=== PATIENT | male | born 1965 | race Caucasian/White ===

== ENCOUNTER 2023-06-20 18:05 | Observation (INO) | payer OTHER ==
[~2023-06-20] VITALS: Ht 165.1 cm; Wt 91.0 kg
[2023-06-20 18:29] LABS: BASOPHILS ABSOLUTE AUTO 0.06 K/mm3 (0.00-0.23); BASOPHILS PERCENT AUTO 1 % (0-2); EOSINOPHILS ABSOLUTE AUTO 0.13 K/mm3 (0.00-0.68); EOSINOPHILS PERCENT AUTO 2 % (0-6); Hematocrit 46.5 % (37.0-53.0); Hemoglobin 16.1 g/dL (13.5-17.5); IMMATURE GRAN ABSOLUTE AUTO 0.08 K/mm3 (0.00-0.10); IMMATURE GRAN PERCENT AUTO 1 % (0-1); LYMPHOCYTES ABSOLUTE AUTO 1.06 K/mm3 (0.84-5.20); LYMPHOCYTES PERCENT AUTO 13 % (21-46); MONOCYTES ABSOLUTE AUTO 0.62 K/mm3 (0.16-1.47); MONOCYTES PERCENT AUTO 8 % (4-13); Mean Corpuscular HGB 31.1 pg (26.0-34.0); Mean Corpuscular HGB Conc 34.6 g/dL (31.5-36.5); Mean Corpuscular Volume 90 fL (80-100); Mean Platelet Volume 10.8 fL (9.1-12.4); NEUTROPHILS ABSOLUTE AUTO 6.08 K/mm3 (1.96-9.15); NEUTROPHILS PERCENT AUTO 76 % (41-73); Platelet Count 257 K/mm3 (150-400); RDW Coefficient Variation 12.9 % (11.7-14.2); RDW Standard Deviation 42.3 fL (35.1-46.3); Red Blood Cell Count 5.17 M/mm3 (4.30-5.90); White Blood Cell Count 8.03 K/mm3 (4.00-11.30)
[2023-06-20 19:56] LABS: Albumin, Blood 3.4 g/dL (3.4-5.0); Albumin/Globulin Ratio 0.9 (0.8-1.8); Bilirubin, Total 0.7 mg/dL (0.1-1.0); Bun/Creatinine Ratio 10.9 (12.0-20.0); Calcium, Blood 8.8 mg/dL (8.5-10.1); Creatinine, Blood 0.82 mg/dL (0.60-1.20); Globulin, Blood 3.7 g/dL (2.2-4.0); Potassium, Blood 4.3 mmol/L (3.5-5.5); Total Protein, Blood 7.1 g/dL (6.4-8.2)
[2023-06-20] MEDS ORDERED: Prinivil10 MG PO (21:56)
[2023-06-20 22:07] VITALS: BP 137/69
[2023-06-21] VITALS (18 sets, daily range): BP systolic 119–163; BP diastolic 61–97
[2023-06-21 05:13] LABS: BASOPHILS ABSOLUTE AUTO 0.07 K/mm3 (0.00-0.23); BASOPHILS PERCENT AUTO 1 % (0-2); EOSINOPHILS PERCENT AUTO 3 % (0-6); Hematocrit 42.2 % (37.0-53.0); Hemoglobin 14.4 g/dL (13.5-17.5); IMMATURE GRAN ABSOLUTE AUTO 0.08 K/mm3 (0.00-0.10); IMMATURE GRAN PERCENT AUTO 1 % (0-1); LYMPHOCYTES ABSOLUTE AUTO 1.18 K/mm3 (0.84-5.20); LYMPHOCYTES PERCENT AUTO 17 % (21-46); MONOCYTES ABSOLUTE AUTO 0.78 K/mm3 (0.16-1.47); MONOCYTES PERCENT AUTO 11 % (4-13); Mean Corpuscular HGB Conc 34.1 g/dL (31.5-36.5); Mean Corpuscular Volume 91 fL (80-100); Mean Platelet Volume 9.9 fL (9.1-12.4); NEUTROPHILS ABSOLUTE AUTO 4.78 K/mm3 (1.96-9.15); NEUTROPHILS PERCENT AUTO 68 % (41-73); Platelet Count 203 K/mm3 (150-400); RDW Coefficient Variation 12.8 % (11.7-14.2); Red Blood Cell Count 4.65 M/mm3 (4.30-5.90); White Blood Cell Count 7.09 K/mm3 (4.00-11.30)
--- NOTE | 2023-06-21 05:14 | NUR ---
PT VSS SINCE ARRIVING TO FLOOR. PT HAS DENIED PAIN/N/V. ABD SOFT, TENDER TO PALP IN RUQ, MILDLY DISTENDED FROM BASELINE PER PT. PT NPO AWAITING SURGERY PLANNING. IVF CONT PER ORDERS.
[2023-06-21 05:55] LABS: Albumin, Blood 2.9 g/dL (3.4-5.0); Albumin/Globulin Ratio 0.9 (0.8-1.8); Bilirubin, Total 0.7 mg/dL (0.1-1.0); Bun/Creatinine Ratio 11.4 (12.0-20.0); Creatinine, Blood 0.79 mg/dL (0.60-1.20); Globulin, Blood 3.2 g/dL (2.2-4.0); Magnesium, Blood 2.3 mg/dL (1.6-2.4); Potassium, Blood 3.9 mmol/L (3.5-5.5); Total Protein, Blood 6.1 g/dL (6.4-8.2)
--- NOTE | 2023-06-21 12:31 | NUR ---
VA IV PT ARRIVED TO THE FLOOR WITH AN IV IN PLACE FROM LOC[facility]. THIS IV WAS REMOVED RIGHT AFTER PLACING NEW IV ACCESS PER PATIENT REQUEST.
--- NOTE | 2023-06-21 17:13 | NUR ---
SHIFT SUMMARY PT HERE FOR UPCOMING CHOLECYSTECTOMY, AWAITING AVAILABILITY IN OR. PT HAS BEEN NPO THROUGHOUT SHIFT. HE DENIES SEVERE PAIN BUT DOES HAVE ABDOMINAL PAIN UPON PALPATION. PT INDEPENDENT IN ROOM. VSS. PT IS RESTING COMFORTABLY, BREATHING EVEN AND UNLABORED.
--- NOTE | 2023-06-21 19:11 | NUR ---
PT TO OR VIA [facility] Raymundo/MARISOL CHANG RN
--- NOTE | 2023-06-21 19:20 | NUR ---
Patient up to Ambulate independently. Gait steady. History, Chart, Medications and Allergies reviewed before start of procedure.Lungs clear T/O to Auscultation. Patient confirms NPO status and agrees with scheduled surgery. Pre-Op teaching done. Pt verbalizes understanding. VSS IN PACU PRE-OP. SCDS, LR, CONSENTS ON CHART
--- NOTE | 2023-06-21 19:26 | NUR ---
SHIFT SUMMARY S/P [facility] PENDING OR TODAY, PT IN BED AND WALKED IN THE HALLS WAITING FOR HIS OR TIME, NO C/O PAIN TODAY, PICKED UP FOR SURGERY JUST BEFORE END OF SHIFT.
--- NOTE | 2023-06-21 23:37 | NUR ---
PT ARRIVED BACK FROM PACU. PT ALERT, TX SELF FROM GURNEY TO BED W/SBA. VSS, SATS TRENDING LOW 90'S ON 2LO2 NC. LUNGS CLEAR/DIM. INCISIONS CDI. CONFIRMED SCHEDULED ABX NOT PREV GIVEN, ABX AND FLUIDS STARTED PER EMAR, PT MED FOR PAIN, DENIED N/V, OC SIPS OF WATER. CALL LIGHT IN REACH
[2023-06-22 00:32] VITALS: BP 137/80
[2023-06-22 01:13] VITALS: BP 127/78
[2023-06-22 03:12] VITALS: BP 138/80
--- NOTE | 2023-06-22 06:29 | NUR ---
POD 1 S/P [facility]. PT VSS, 2LO2 NC [address] PT KEEP SATS >90% WHILE SLEEPING. INCISIONS CDI. PT OC SM AMT CL PO, DENIED N/V, REP NO FLATUS YET. PT VOIDING URINE W/O DIFFICULTY. PT UP OOB W/SBA, OC WELL. IVF AND ABX CONT PER ORDERS. PT EDUCATED ON I/S USE WHILE AWAKE.
[2023-06-22 07:44] VITALS: BP 138/76
[2023-06-22] MEDS ORDERED: LEVO750 PO (11:12)
[2023-06-22] MEDS ORDERED: OXYC5 PO (11:14)
== END 2023-06-22 13:39 | disposition home or self-care (01) ==
LOC: ER 18:05 → SURS 18:06 → ER 21:32 → SURS 21:46
PROVIDERS: Emergency Medicine; Nurse Practitioner Acute Care; Surgery; ADMIT Internal Medicine
PROC: 0FT44ZZ Resection of Gallbladder, Percutaneous Endoscopic Approach (ICD-10-PCS; principal; 2023-06-21 18:00)
PROC: 8E0W4CZ Robotic Assisted Procedure of Trunk Region, Percutaneous Endoscopic Approach (ICD-10-PCS; principal; 2023-06-21 18:00)
DX: K80.00 Calculus of gallbladder with acute cholecystitis without obstruction (principal); I10 Essential (primary) hypertension; E78.5 Hyperlipidemia, unspecified; K82.A1 Gangrene of gallbladder in cholecystitis
CPT/HCPCS: 36415; 76705; 80053; 83690; 83735; 85025; 88304; 93005; 93010; 96361; 96365; 96366; 96375; 99285-25; A9270; G0378; J0744; J1100; J2250; J2371; J2405; J2704; J3010; J7030; J7120